=== PATIENT | female | born 1945 | race Caucasian/White ===

== ENCOUNTER 2016-03-26 08:02 | Emergency (ER) | payer OTHER, BC ==
[~2016-03-26] VITALS: Ht 175.3 cm; Wt 74.8 kg
[~2016-03-26 08:02] MED LIST: BACTRIM,SEPT1 TABLET PO; COZAAR25 MG PO; ECOTRIN81 M1 PO; HUMALOG100 UNIT/2 SC; HUMULIN N100 UNITS/ SC; LIPITOR80 MG PO; LOSARTAN POTAS100 MG PO
[2016-03-26 09:10] LABS: POINT-OF-CARE METER ID UU14100415
[2016-03-26] MEDS ORDERED: PERCOCET 5/31 TABLET PO (10:30)
[2016-03-26 10:59] VITALS: BP 178/85
== END 2016-03-26 11:00 | disposition home or self-care (01) ==
LOC: EME 08:02
PROVIDERS: Emergency Medicine
DX: S80.01XA Contusion of right knee, initial encounter (principal); S83.91XA Sprain of unspecified site of right knee, initial encounter; W18.09XA Striking against other object with subsequent fall, initial encounter; I10 Essential (primary) hypertension; E78.5 Hyperlipidemia, unspecified; E11.9 Type 2 diabetes mellitus without complications; Z79.4 Long term (current) use of insulin
CPT/HCPCS: 73564; 82948; 99281; 99285

== ENCOUNTER 2016-08-02 22:07 | Emergency (ER) | payer OTHER, BC ==
[~2016-08-02] VITALS: Ht 165.1 cm; Wt 75.4 kg
[~2016-08-02 22:07] MED LIST changes: +PERCOCET 5/31 TABLET PO
[2016-08-02 23:03] LABS: HEMATOCRIT 42.3 % (36.0-46.0); MCH 31.6 PG (29.0-34.0); MEAN PLAT.VOLUME 9.9 uM^3 (9.5-12.4); PLATELET COUNT 327 K/uL (156-360); RBC DIS.WIDTH-CV 13.2 % (11.8-14.6); RBC DIS.WIDTH-SD 45.3 % (39-53); RED BLOOD COUNT 4.55 M/uL (3.80-5.20); WHITE BLOOD COUNT 19.4 K/uL (4.1-10.2)
[2016-08-02 23:13] LABS: CHLORIDE 104 mEq/L (99-109); POTASSIUM 3.4 mEq/L (3.7-5.4); SODIUM 138 mEq/L (136-147)
[2016-08-02 23:15] LABS: GLUCOSE 141 mg/dL (70-99)
[2016-08-02 23:16] LABS: ANION GAP 13 MEQ/L (2-14)
[2016-08-02 23:17] LABS: TOTAL BILIRUBIN 0.5 mg/dL (0.0-1.0)
[2016-08-02 23:18] LABS: ALKALINE PHOSPHATASE 83 IU/L (3-129)
[2016-08-02 23:19] LABS: GFR ESTIMATE (CALCULATED) 47 mL/min/
[2016-08-02 23:20] LABS: UREA NITROGEN (BUN) 18 mg/dL (9-23)
[2016-08-02 23:22] LABS: LIPASE 32 U/L (1.0-51.0)
[2016-08-02 23:29] LABS: TROP-I INTERPRETATION NEGATIVE; TROPONIN-I < 0.01 ng/mL (0.0-0.30)
[2016-08-02 23:42] LABS: ADD MIUA? YES; BILIRUBIN NEGATIVE; BLOOD NEGATIVE; COLOR STRAW ((YELLOW)); GLUCOSE (STRIP) 50; KETONES NEGATIVE; LEUKOCYTES LARGE; NITRITE NEGATIVE; PROTEIN (STRIP) NEGATIVE; SPECIFIC GRAVITY 1.004 (1.000-1.030); UROBILINOGEN 0.2 MG/DL (0.2-1.0)
[2016-08-02 23:48] LABS: BACTERIA RARE /HPF; EPITHELIAL CELLS RARE /HPF; MUCUS NONE SEEN /LPF; RED BLOOD CELLS 0-5 /HPF (0-5); UCUL ADDED? NO; WHITE BLOOD CELLS 15-20 /HPF (0-5)
[2016-08-03] MEDS ORDERED: KEFLEX500 MG PO (00:14)
[2016-08-03 00:37] LABS: POINT-OF-CARE METER ID UU13113747
[2016-08-03 01:21] VITALS: BP 161/61
== END 2016-08-03 01:22 | disposition home or self-care (01) ==
LOC: EME → EDBD 22:07 → EME 08-03 01:22
PROVIDERS: Emergency Medicine
DX: N30.90 Cystitis, unspecified without hematuria (principal); E11.649 Type 2 diabetes mellitus with hypoglycemia without coma; I10 Essential (primary) hypertension; E78.5 Hyperlipidemia, unspecified; Z79.4 Long term (current) use of insulin
CPT/HCPCS: 71020; 80053; 81003; 82948; 83690; 84484; 85027; 93005; 99281; 99285; J7030